=== PATIENT | male | born 2000 | race American Indian/Alaskan Native ===

== ENCOUNTER 2021-11-30 17:32 | Emergency (ER) | payer OTHER ==
[2021-11-30] MEDS ORDERED: IBUPROFEN 800 MG TAB PO STA (17:46)
[2021-11-30] MEDS ORDERED: ACETAMINOPHEN 500 MG TAB PO STA (17:46)
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
[2021-11-30] MEDS ORDERED: TETANUS,DIPH,PERTUSS(ACELL) VACCINE 0.5 ML SYRINGE IM ONE (18:43)
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
[2021-11-30 21:24] VITALS: BP 137/87
== END 2021-12-01 00:45 | disposition home or self-care (01) ==
LOC: ED 17:32
DX: S50.812A Abrasion of left forearm, initial encounter (principal); S09.90XA Unspecified injury of head, initial encounter; Z79.899 Other long term (current) drug therapy; V87.7XXA Person injured in collision between other specified motor vehicles (traffic), initial encounter; Y93.89 Activity, other specified; Y92.488 Other paved roadways as the place of occurrence of the external cause; Y99.8 Other external cause status
CPT/HCPCS: 70450; 72125; 99284